=== PATIENT | male | born 1985 ===

== ENCOUNTER 2018-07-07 05:46 | Emergency (ER) | payer SELFPAY ==
[2018-07-07 05:56] VITALS: BMI 22.3
[2018-07-07 05:58] VITALS: BP 121/45; PULSE 86; RESP 16; TEMP 97.5; O2SAT 98
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
--- NOTE | 2018-07-07 10:22 | RAD ---
Date of service: 07/07/2018 PROCEDURE: Left Knee Radiographs. HISTORY: Pain. COMPARISON: None. TECHNIQUE: 2 views obtained. FINDINGS: BONES: Normal. No fracture. JOINTS: Normal. No osteoarthritis. JOINT EFFUSION: None. OTHER FINDINGS: None. IMPRESSION: Normal radiographs of the left knee.
== END 2018-07-07 07:25 | disposition home or self-care (01) ==
LOC: ED 05:46
DX: M25.562 Pain in left knee (principal)